=== PATIENT | female | born 2000 | race African-American/Black ===

== ENCOUNTER 2024-04-17 13:56 | Emergency (ER) | payer OTHER, SELFPAY ==
--- NOTE | ~2024-04-17 | XR_ITS ---
EXAMINATION: XR chest 2V Exam Date/Time: 04/17/2024 17:30 COUNTER SALES PERSON HISTORY: SOB CONGESTION SYNCOPE BODY ACHES HX ASTHMA Comparison: None. RESULT: Lines, tubes, and devices: None. Lungs and pleura: Clear. Cardiomediastinal silhouette: Normal. Other: No acute osseous or upper abdominal finding. IMPRESSION: No acute cardiopulmonary process. Reviewed, dictated and finalized at location K. TER SALES PERSON
[2024-04-17 13:56] VITALS: BP 140/84; PULSE 120; RESP 26; TEMP 37.2; O2SAT 98
--- OUTSIDE RECORDS SUMMARY | 2024-04-17 13:58 | XMS_ITS | CONTINUITY OF CARE DOCUMENT ---
Author Name jerry edwards Address Unknown Organization [facility] Address [address] [place] [address] Phone [phone] Care Team Providers Care Enzyme Chemist Name Role Phone Cedric Bernard MD Unavailable Cedric Bernard MD Unavailable [phone] INSURANCE PROVIDERS Payer name Policy type / Coverage type [place] [employer] [place] [employer] (2) Medicaid [id number]
[2024-04-17 14:12] VITALS: O2SAT 98
[2024-04-17 14:52] LABS: Influenza A QL RT-PCR Negative (Negative); Influenza B QL RT-PCR Negative (Negative); RSV RNA, RT-PCR Negative (Negative); SARS-CoV-2 RNA PCR Negative (Negative)
--- OUTSIDE RECORDS SUMMARY | 2024-04-17 15:09 | XMS_ITS | Clinical Summary ---
Author Organization [facility] Address [address] [place] [address] Care Team Providers Care Lye Boiler Name Role Phone Saray Thomas MD, Duran Ardon Primary Care Provide r Khanh Beckwith MD Unavailable [phone] Alis Lees MD Unavailable [phone] Allergies Active Allergy Reactions Criticality Noted Date Comments Doxycycline Nausea & Vomiting Low 03/25/2024 Medications fluticasone propionate (Flonase Allergy Relief) 50 mcg/actuation nasal spray Administer 1 spray into each nostril 2 (two) times a day 3 each 3 01/02/20 22 Active diphenhydrAMINE (BENADRYL) 25 mg capsuleIndication s:Moderate persistent asthma without complication Take 1 tablet/capsule (25 mg total) by mouth nightly 30 tablet/capsu le 2 01/19/20 22 Active albuterol 2.5 mg /3 mL (0.083 %) nebulizer solutionIndicatio ns:Acute Asthma Attack Take 3 mL (2.5 mg total) by nebulization 4 (four) times a day as needed for wheezing or shortness of breath 3 mL 3 05/21/19 23 Active ibuprofen (ADVIL,MOTRIN) 800 mg tabletIndications :Pain Take 1 tablet (800 mg total) by mouth every 8 (eight) hours as needed for pain 60 tablet 3 06/15/19 23 Active tiotropium bromide (Spiriva Respimat) 2.5 mcg/actuation inhaler Inhale 2 puffs daily 1 each 3 09/10/19 23 Active ipratropium-albut Mathieu (DUO-NEB) 0.5-2.5 mg/3 mL nebulizer solutionIndicatio ns:Chronic Obstructive Pulmonary Disease with Bronchospasms Take 3 mL by nebulization every 6 (six) hours 360 mL 3 07/31/19 24 Active azelastine (ASTELIN) 137 mcg (0.1 %) nasal spray Administer 1 spray into each nostril 2 (two) times a day Use in each nostril as directed 30 mL 3 07/31/19 24 Active budesonide-formot Mathieu (Symbicort) 160-4.5 mcg/actuation inhaler Inhale 2 puffs 2 (two) times a day Rinse mouth with water after use. Do not swallow. 1 each 11/12/19 24 Active montelukast (Singulair) 10 mg tablet Take 1 tablet (10 mg total) by mouth nightly 30 tablet 11/12/19 24 Active fexofenadine (VENECIA) 180 mg tabletIndications :Mild persistent asthma without complication Take 1 tablet (180 mg total) by mouth daily as needed (allergies) 90 tablet 4 01/02/20 24 025 Active albuterol HFA (ProAir HFA) 90 mcg/actuation inhaler Inhale 2 puffs every 6 (six) hours as needed for wheezing 1 each 3 02/27/20 24 Active Active Problems Problem Noted Date Diagnosed Date BMI 30.0-30.9,adult 07/31/2023 Mucopurulent chronic bronchitis 08/06/2022 Assessment & Plan (06/13/2023 11:09 AM CDT): Following pul Chronic stable Well controlled Continue current prescribed medications at current dose Preventative health care 06/14/2022 Assessment & Plan (06/13/2023 11:04 AM CDT): Reviewed labs, screenings and vaccines Assessment & Plan (06/14/2022 12:17 PM CDT): Reviewed labs, screenings and vaccines Xplru-9-ngghfkqncjkbmwfuyett (THC) dependence (C MS/HCC) 06/14/2022 Assessment & Plan (06/13/2023 11:04 AM CDT): Recommend edibles Assessment & Plan (06/14/2022 12:16 PM CDT): Discussed her smoking THC, strongly stressed she cannot do this to her lungs anymore She will try changing to gummies instead Elevated IgE level 01/01/2022 Moderate persistent asthma with status asthmatic us 11/22/2021 Assessment & Plan (07/26/2022 7:21 AM CDT): Has reduced her smoking of THC significantly This time of year her allergies do act up Because of the rash and her allergies I am going to prescribe steroids Assessment & Plan (06/14/2022 12:16 PM CDT): Stressed medical adherence Also stressed stopping smokng THC, it is clearly bad for her lungs and needs to stop. She is on multiple medication for asthma with no resolve Nicotine dependence 11/22/2021 Assessment & Plan (01/18/2022 2:24 PM CDT): Reports quitting smoking Non-seasonal allergic rhinitis due to pollen 10/2021 Gastroesophageal reflux disease without esophagi tis 05/07/2021 Encounters Date Type Department Care Team Description 04/16/2024 2:00 PM NEUROPATHOLOGIST - 04/16/2024 11:59 PM NEUROPATHOLOGIST Hospital Encounter [facility] Respiratory Therapy [address] [place] [address] Mucopurulent chronic bronchitis (HCC); Moderate persistent asthma with status asthmaticus; Non-seasonal allergic rhinitis due to pollen; Elevated IgE level; BMI 30.0-30.9,adult Discharge Disposition: Discharge to home or self care 03/05/2024 Telephone [facility] Pulmonology [address] [place] [address] Karol Dinh MD 02/27/2024 10:41 AM NEUROPATHOLOGIST - 02/27/2024 11:59 PM NEUROPATHOLOGIST Hospital Encounter [facility] [place] [address] Mucopurulent chronic bronchitis (HCC); Moderate persistent asthma with status asthmaticus; Non-seasonal allergic rhinitis due to pollen; Elevated IgE level; BMI 30.0-30.9,adult Discharge Disposition: Discharge to home or self care 02/27/2024 9:45 AM NEUROPATHOLOGIST Office Visit [facility] Pulmonology [address] [place] [address] [place] [phone] Karol Dinh MD Mucopurulent chronic bronchitis (HCC) (Primary Dx); Moderate persistent asthma with status asthmaticus; Non-seasonal allergic rhinitis due to pollen; Elevated IgE level; BMI 30.0-30.9,adult 02/27/2024 Documentation [facility] Medical [facility] Pulmonology [address] [place] [phone] Angeline Ham, MISSY 01/23/[address] [address] Nasra Mills, MISSY 01/22/2024 6:18 PM NEUROPATHOLOGIST - 01/22/2024 7:38 PM NEUROPATHOLOGIST Emergency [address] [address] Discharge Disposition: Left without being seen from Last 3 Months Immunizations Name Administration Dates Next Due DTaP 08/23/2003, 1,1999,08/23,1999 HPV, Quadrivalent 11/28/2010 HPV9 07/20/2015 Hep A, Ped Unspecified 08/06/2001 Hep A, Pediatric 09/24/2004 Hep B / HiB 1999,1999 Hep B, Adolescent or Pediatric 1999,1998 HiB 08/06/2001,10/28/2000 IPV 08/23/2003, 0,1999,05/22 Influenza, Quadrivalent, Spl it, Preservative Free, Intramuscular 06/13/2022 Influenza, Split 12/28/2009 Influenza, Trivalent, Preser vative Free, Intramuscular 11/28/2010 Influenza, Unspecified 01/15/2023,2021(Deferred: Patient Refused),05/07/2021(Deferred: Patient Refused),05/04/2009 MMR 08/23/2003,10/28/2000 Meningococcal MCV4P (Menactra) 07/20/2015,2010 Tdap 11/28/2010 Varicella 05/04/2009,10/28/2000 Family History Relation Name Status Comments Father Alive Mother Alive Social History Tobacco Use Types Packs/Day Years Used Date Smoking Tobacco: Never Smokeless Tobacco: Never Tobacco Cessation:Counseling Given: Not Answered AUDIT-C Answer Date Recorded Q1: How often do you have a drink containing alc ohol? 2-4 times a month 06/13/2023 Q2: How many drinks containi ng alcohol do you have on a typical day when you are drinking? 1 or 2 06/13/2023 Q3: How often do you have si x or more drinks on one occasion? Never 06/13/2023 PHQ-2 Answer Date Recorded PHQ-2 Total Score (If total score is 3 or more points, staff should administer the PHQ-9) 0 06/13/2023 Hunger Vital Sign Answer Date Recorded Within the past 12 months, y ou worried that your food would run out before you got the money to buy more. Never true 11/15/19 23 Within the past 12 months, t he food you bought just didn't last and you didn't have money to get more. Never true 11/14/2022 Personal Safety Answer Date Recorded Have you ever been in or are you currently in a harmful physical or emotional relationship or is someone making you feel afraid or unsafe? Denies 11/11/2023 Comments No Sex and Gender Information Value Date Recorded Sex Assigned at Not on file Legal Sex Female 7:01 PM NEUROPATHOLOGIST Gender Identity Female 12/20/2021 10:41 AM CDT Sexual Orientation Not on file Obstetrics History Last Filed Vital Signs Vital Sign Reading Time Taken Comments Blood Pressure 110/62 02/27/2024 9:50 AM NEUROPATHOLOGIST Pulse 100 04/16/2024 2:30 PM NEUROPATHOLOGIST Temperature 37 ??C (98.6 ??F) 02/27/2024 9:50 AM NEUROPATHOLOGIST Respiratory Rate 18 04/16/2024 2:30 PM NEUROPATHOLOGIST Oxygen Saturation 99% 04/16/2024 2:30 PM NEUROPATHOLOGIST Inhaled Oxygen Concentration - - Weight 75.8 kg (167 lb 3.2 oz) 02/27/2024 9:50 A M NEUROPATHOLOGIST Height 157.5 cm (5' 2 ) 02/27/2024 9:50 AM NEUROPATHOLOGIST Body Mass Index 30.58 02/27/2024 9:50 AM NEUROPATHOLOGIST Plan of Treatment Health Maintenance Due Date Last Done Comments Hepatitis C Screening 1999 Pneumococcal vaccine <65 (1 of 2 - PCV) 2005 DTaP/Tdap/Td Vaccine (7 - Td or Tdap) 11/28/2020 11/28/2010, 08/23/2003, 10/28/2000, Additional history exists Cervical Cancer Screening 02/23/2022 02/23/2021 Covid-19 Vaccine (3 - 2023-2 5 season) 2023 01/06/2021, 12/13/2020 Influenza Vaccine (#1) 2023 , 06/13/2022, 11/28/2010, Additional history exists Depression Screening 06/12/2024 06/13/2023, 06/13/2023, 07/26/2022, Additional history exists Regular Well Visit/Exam 18-64 06/12/2024, 06/14/2022, 05/07/2021 Varicella Vaccines Completed 05/04/2009, 10/28/2000 HPV Vaccines Completed 07/20/2015, 11/28/2010 Procedures Procedure Name Priority Date/Time Associated Diagnosis Comments PULMONARY FUNCTION TEST (PFT) Routine 04/16/2024 2:53 PM NEUROPATHOLOGIST Mucopurulent chronic bronchitis (HCC) Moderate persistent asthma with status asthmaticus Non-seasonal allergic rhinitis due to pollen Elevated IgE level BMI 30.0-30.9,adult XR CHEST PA LATERAL 2 VIEWS Schedule Routine, Read Routine (OP Routine) 02/27/2024 11:01 AM NEUROPATHOLOGIST Mucopurulent chronic bronchitis (HCC) Moderate persistent asthma with status asthmaticus Non-seasonal allergic rhinitis due to pollen Elevated IgE level BMI 30.0-30.9,adult HM PAP SMEAR WITH HPV Routine 02/23/2021 from Last 3 Months or Most Recently Relevant to Health Maintenance Results * XR Chest Pa Lateral 2 Views (02/27/2024 11:01 AM NEUROPATHOLOGIST) Anatomical Region Laterality Modality Body, Chest N/A Computed Radiogr aphy 03/05/2024 10:5 9 AM NEUROPATHOLOGIST Narrative 03/05/2024 11:02 AM NEUROPATHOLOGIST EXAM DESCRIPTION: XR CHEST PA LATERAL 2 VIEWS REASON FOR STUDY: Cough and congestion x 2 yrs, Hx smoker ?? TECHNIQUE: Frontal and lateral radiographic view(s) of the chest. COMPARISON: 11/11/2023. FINDINGS: LUNGS: ??Bilateral perihilar interstitial thickening appears slightly increased from prior imaging. ??There is no focal consolidation, pleural effusion or pneumothorax. ?? HEART/MEDIASTINUM: ??Cardiac silhouette normal in size. Mediastinal and hilar contours appear normal. LINES/TUBES: ??None. BONES: ??No acute osseous abnormality. IMPRESSION: Bilateral perihilar interstitial thickening slightly increased from prior imaging. ??Findings may be related to a viral infection. ??Continued follow-up recommended. THIS IS AN ELECTRONICALLY VERIFIED FINAL REPORT 03/05/2024 11:02 AM - Electronically signed by ??Petros Harris M.D. D: ??03/05/2024 11:02 AM T: Report ID: [id number] Reading Location: ??[id number] Procedure Note Petros Harris Jr., MD - 03/05/2024 EXAM DESCRIPTION: XR CHEST PA LATERAL 2 VIEWS REASON FOR STUDY: Cough and congestion x 2 yrs, Hx smoker TECHNIQUE: Frontal and lateral radiographic view(s) of the chest. COMPARISON: 11/11/2023. FINDINGS: LUNGS: Bilateral perihilar interstitial thickening appearsslightly increased from prior imaging. There is no focal consolidation, pleural effusion or pneumothorax. HEART/MEDIASTINUM: Cardiac silhouette normal in size. Mediastinal andhilar contours appear normal. LINES/TUBES: None. BONES: No acute osseous abnormality. IMPRESSION: Bilateral perihilar interstitial thickening slightly increased from prior imaging. Findings may be related to a viral infection.Continued follow-up recommended. THIS IS AN ELECTRONICALLY VERIFIED FINAL REPORT 03/05/2024 11:02 AM - Electronically signed by Petros Harris M.D. T: Report ID: [id number] Reading Location: [place] [address] Karol Dinh MD IMG XR PROCEDURES Final Res ult * HM PAP SMEAR WITH HPV (02/23/2021) Scribed Pap Smear w/HPV Normal Historical Provider HEALTH MAINTENANCE Final Result from Last 3 Months or Most Recently Relevant to Health Maintenance Insurance [facility] Care Teams Lye Boiler Relationship Specialty Start Date End Date Duran So Jr., MD [address] [place] [id number] PCP - General Internal Medicine 05/07/21 Khanh Beckwith MD [address] [place] [address] [place] [address] Dermatology 08/13/22 Alis Lees MD [facility] [address] [place] [address] Resident Dermatology 11/14/22
--- OUTSIDE RECORDS SUMMARY | 2024-04-17 15:09 | XMS_ITS | Encounter Summary ---
Author Organization [facility] Healthcare Address [address] [place] [address] Care Team Providers Care Pathological Technician Name Role Phone Saray Thomas MD, Duran Ardon Primary Care Provide r Khanh Beckwith MD Unavailable [phone] Alis Lees MD Unavailable [phone] Reason for Referral * Procedure (Routine) - Closed Specialty Diagnoses / Procedures Referred By Contdae fair Referred To Contact Diagnoses Mucopurulent chronic bronchitis (HCC) Moderate persistent asthma with status asthmaticus Non-seasonal allergic rhinitis due to pollen Elevated IgE level BMI 30.0-30.9,adult Procedures Pulmonary Function Test -[facility]; Full PFT in PFT Lab w/Stress Ox/6 Min Walk Test Karol Dinh MD [address] [facility] [address] [address] Phone: tel: fax: Referral ID Status Reason Start Date Expiration Date Visits Re quested Visits Authorized [id number] Closed 02/27/2024 03/28/2025 1 1 P DRIVER Reason for Visit * Procedure (Routine) - Closed Specialty Diagnoses / Procedures Referred By Contdae fair Referred To Contact Diagnoses Mucopurulent chronic bronchitis (HCC) Moderate persistent asthma with status asthmaticus Non-seasonal allergic rhinitis due to pollen Elevated IgE level BMI 30.0-30.9,adult Procedures Pulmonary Function Test -[facility]; Full PFT in PFT Lab w/Stress Ox/6 Min Walk Test Karol Dinh MD [address] [facility] [address] [place] [address] Phone: tel: fax: Referral ID Status Reason Start Date Expiration Date Visits Re quested Visits Authorized [id number] Closed 02/27/2024 03/28/2025 1 1 Encounter Details Date Type Department Care Team (Latest Contact Info) Description 04/16/2024 2:00 PM SCOOP DRIVER - 04/16/2024 11:59 PM SCOOP DRIVER Hospital Encounter [facility] Respiratory Therapy [address] [place] [phone] Mucopurulent chronic bronchitis (HCC); Moderate persistent asthma with status asthmaticus; Non-seasonal allergic rhinitis due to pollen; Elevated IgE level; BMI 30.0-30.9,adult Discharge Disposition: Discharge to home or self care Social History Tobacco Use Types Packs/Day Years Used Date Smoking Tobacco: Never Smokeless Tobacco: Never AUDIT-C Answer Date Recorded Q1: How often [...] on file Legal Sex Female 7:01 PM SCOOP DRIVER Gender Identity Female 12/20/2021 10:41 AM CDT Sexual Orientation Not on file documented as of this encounter Last Filed Vital Signs Vital Sign Reading Time Taken Comments Blood Pressure - - Pulse 100 04/16/2024 2:30 PM SCOOP DRIVER Temperature - - Respiratory Rate 18 04/16/2024 2:30 PM SCOOP DRIVER Oxygen Saturation 99% 04/16/2024 2:30 PM SCOOP DRIVER Inhaled Oxygen Concentration - - Weight - - Height - - Body Mass Index - - documented in this encounter Medications at Time of Discharge diphenhydrAMINE (BENADRYL) 25 mg capsuleIndications :Moderate persistent asthma without complication Take 1 tablet/capsul e (25 mg total) by mouth nightly 30 tablet/capsule 2 01/18/2022 fexofenadine (VENECIA) 180 mg tabletIndications: Mild persistent asthma without complication Take 1 tablet (180 mg total) by mouth daily as needed (allergies) 90 tablet 4 01/02/2024 ibuprofen (ADVIL,MOTRIN) 800 mg tabletIndications: Pain Take 1 tablet (800 mg total) by mouth every 8 (eight) hours as needed for pain 60 tablet 3 06/14/2022 documented as of this encounter Discharge Disposition Disposition Code Departure Means Destination Discharge to home or self care documented in this encounter Progress Notes * Zoe Garrido, SHANK STITCHER - 04/16/2024 2:52 PM CST Exercise Oximetry Results Resting Information Resting HR.: (P) 100 bpm Resting SPO2: (P) 99 % Oxygen Setting: (P) ROOM AIR Ambulation Trials Activity 1: Ambulated (feet): (P) 1400 feet Oxygen Setting #1: (P) ROOM AIR SPO2 (%) #1: (P) 98 % Post Ambulation Assessment HR Post Assessment: (P) 110 bpm RR Post Assessment: (P) 18 breaths/m Post Assessment Recommendation: (P) PT DOES NOT QUALIFY FOR HOME OXYGEN $ Home O2 Assessment: (P) Yes Patient is a fall risk (Y/N): N Assistive device: N Critical Results (enter NA in each field below if no critical results) Critical results reported to: NA Method of notification: NA Time of notification: NA DX:ASTHMA Zoe Garrido RRT P DRIVER documented in this encounter Plan of Treatment Pending Results Name Type Priority Associated Diagnoses Date /Time Pulmonary Function Test - PFT Routine Mucopurulent chronic bronchitis (HCC) Moderate persistent asthma with status asthmaticus Non-seasonal allergic rhinitis due to pollen Elevated IgE level BMI 30.0-30.9,adult 04/16/2024 2:53 PM SCOOP DRIVER documented as of this encounter Procedures Procedure Name Priority Date/Time Associated Diagnosis Comments PULMONARY FUNCTION TEST (PFT) Routine 04/16/2024 2:53 PM SCOOP DRIVER Mucopurulent chronic bronchitis (HCC) Moderate persistent asthma with status asthmaticus Non-seasonal allergic rhinitis due to pollen Elevated IgE level BMI 30.0-30.9,adult documented in this encounter Visit Diagnoses Diagnosis Mucopurulent chronic bronchitis (HCC) Mucopurulent chronic bronchitis Moderate persistent asthma with status asthmaticus Unspecified asthma, with status asthmaticus Non-seasonal allergic rhinitis due to pollen Elevated IgE level Other and unspecified nonspecific immunological findings BMI 30.0-30.9,adult documented in this encounter Administered Medications Inactive Administered Medications - up to 3 most recent administrations Medication Order MAR Action Action Date Dose Rate Site albuterol HFA (PROVENTIL HFA,VENTOLIN HFA,PROAIR HFA) 90 mcg/actuation inhaler 2 puff 2 puff, inhalation, Once (foreign correspondent), On Fri04/16/24 at 1530, For 1 dose Given 04/16/2024 2:20 PM SCOOP DRIVER 2 puffs documented in this encounter Orders Medications Ordered That Riccardo ht Not Have Been Administered Count Last Ordered Date First Ordered Date albuterol HFA (PROVENTIL HFA ,VENTOLIN HFA,PROAIR HFA) 90 mcg/actuation inhaler 2 puff 1 04/16/2024 documented in this encounter Care Teams Pathological Technician Relationship Specialty Start Date End Date Duran So Jr., MD [address] [place] [id number] PCP - General Internal Medicine 05/07/21 Khanh Beckwith MD [address] [facility] [place] [address] Dermatology 08/13/22 Alis Lees MD [address] [place] [address] Resident Dermatology 11/14/22 documented as of this encounter
--- OUTSIDE RECORDS SUMMARY | 2024-04-17 15:09 | XMS_ITS | Referral Summary ---
Author Organization [facility] Address [address] [place] [address] Care Team Providers Care Mechanical Maintenance Instructor Name Role Phone Saray Thomas MD, Duran Ardon Primary Care Provide r Khanh Beckwith MD Unavailable [phone] Alis Lees MD Unavailable Encounters Date Type Department Care Team Description 04/16/2024 2:00 PM DISH TECHNICIAN - 04/16/2024 11:59 PM DISH TECHNICIAN Hospital Encounter [facility] Res[facility] [place] [address] Mucopurulent chronic bronchitis (HCC); Moderate persistent asthma with status asthmaticus; Non-seasonal allergic rhinitis due to pollen; Elevated IgE level; BMI 30.0-30.9,adult Discharge Disposition: Discharge to home or self care 03/05/2024 Telephone [facility] Pulmonology [address] [place] [id number] Karol Dinh MD 02/27/2024 Documentation [facility] Pulmonology [address] [place] [id number] Angeline Ham RN 02/27/2024 10:41 AM DISH TECHNICIAN - 02/27/2024 11:59 PM DISH TECHNICIAN Hospital Encounter [facility] [address] [place] [address] Mucopurulent chronic bronchitis (HCC); Moderate persistent asthma with status asthmaticus; Non-seasonal allergic rhinitis due to pollen; Elevated IgE level; BMI 30.0-30.9,adult Discharge Disposition: Discharge to home or self care 02/27/2024 9:45 AM DISH TECHNICIAN Office Visit [facility] Pulmonology [address] [phone] Karol Dinh MD Mucopurulent chronic bronchitis (HCC) (Primary Dx); Moderate persistent asthma with status asthmaticus; Non-seasonal allergic rhinitis due to pollen; Elevated IgE level; BMI 30.0-30.9,adult 01/23/[address] [address] Nasra Mills RN 01/22/2024 6:18 PM DISH TECHNICIAN - 01/22/2024 7:38 PM DISH TECHNICIAN Emergency [address] [address] Discharge Disposition: Left without being seen from Last 3 Months Allergies Active Allergy Reactions Criticality Noted Date [...] PM CDT): Reviewed labs, screenings and vaccines Vggvw-0-czhqybiqobsgxszblsya (THC) dependence (C MS/HCC) 06/14/2022 Assessment & [...] Gastroesophageal reflux disease without esophagi tis 05/07/2021 Immunizations Name Administration Dates Next Due DTaP [...] MCV4P (Menactra) 07/20/2015,2010 Tdap 11/28/2010 Varicella 05/04/2009,10/28/2000 Social History Tobacco Use Types Packs/Day Years [...] on file Legal Sex Female 7:01 PM DISH TECHNICIAN Gender Identity Female 12/20/2021 10:41 AM CDT Sexual Orientation Not on file Last Filed Vital Signs Vital Sign Reading Time Taken Comments Blood Pressure 110/62 02/27/2024 9:50 AM DISH TECHNICIAN Pulse 100 04/16/2024 2:30 PM DISH TECHNICIAN Temperature 37 ??C (98.6 ??F) 02/27/2024 9:50 AM DISH TECHNICIAN Respiratory Rate 18 04/16/2024 2:30 PM DISH TECHNICIAN Oxygen Saturation 99% 04/16/2024 2:30 PM DISH TECHNICIAN Inhaled Oxygen Concentration - - Weight 75.8 kg (167 lb 3.2 oz) 02/27/2024 9:50 A M DISH TECHNICIAN Height 157.5 cm (5' 2 ) 02/27/2024 9:50 AM DISH TECHNICIAN Body Mass Index 30.58 02/27/2024 9:50 AM DISH TECHNICIAN Plan of Treatment Not on file Procedures Procedure Name Priority Date/Time Associated Diagnosis Comments PULMONARY FUNCTION TEST (PFT) Routine 04/16/2024 2:53 PM DISH TECHNICIAN Mucopurulent chronic bronchitis (HCC) Moderate persistent asthma with status asthmaticus Non-seasonal allergic rhinitis due to pollen Elevated IgE level BMI 30.0-30.9,adult XR CHEST PA LATERAL 2 VIEWS Schedule Routine, Read Routine (OP Routine) 02/27/2024 11:01 AM DISH TECHNICIAN Mucopurulent chronic bronchitis (HCC) Moderate persistent asthma with status asthmaticus Non-seasonal allergic rhinitis due to pollen Elevated IgE level BMI 30.0-30.9,adult PAP SMEAR WITH HPV Routine 02/23/2021 from Last 3 Months or Most Recently Relevant to Health Maintenance Results * XR Chest Pa Lateral 2 Views (02/27/2024 11:01 AM DISH TECHNICIAN) Anatomical Region Laterality Modality Body, Chest N/A Computed Radiogr aphy 03/05/2024 10:5 9 AM DISH TECHNICIAN Narrative 03/05/2024 11:02 AM DISH TECHNICIAN EXAM DESCRIPTION: XR CHEST PA LATERAL 2 [...] D: ??03/05/2024 11:02 AM T: Report ID: [id number] Reading Location: ??[id number] Procedure Note Petros Harris Jr., MD - [...] by Petros Harris M.D. T: Report ID: [id number] Reading Location: [id number] Karol Dinh MD IMG XR PROCEDURES Final Res ult * HM PAP SMEAR WITH HPV (02/23/2021) Scribed Pap Smear w/HPV Normal Historical Provider HEALTH MAINTENANCE Final Result from Last 3 Months or Most Recently Relevant to Health Maintenance Insurance [facility] Care Teams Mechanical Maintenance Instructor Relationship Specialty Start Date End Date Duran So Jr., MD [address] [place] [id number] PCP - General Internal Medicine 05/07/21 Khanh Beckwith MD [address] [place] [address] [place] [address] Dermatology 08/13/22 [facility]is Le[facility] [address] [place] [address] Resident Dermatology 11/14/22
--- OUTSIDE RECORDS SUMMARY | 2024-04-17 15:09 | XMS_ITS | CONTINUITY OF CARE DOCUMENT ---
Author Name jerry edwards Address Unknown Organization [facility] Address [address] [place] [address] Phone [phone] Care Team Providers Care Sr. Operations Manager Name Role Phone Cedric Bernard MD Unavailable Cedric Bernard MD Unavailable INSURANCE PROVIDERS Payer name Policy type / Coverage type [place] [employer] [place] [employer] (2) Medicaid [id number]
[2024-04-17] MEDS: ALBUTEROL SULFATE NEB 2.5 MG/3 ML INH 5 MG INHALATION (16:30)
[2024-04-17 16:32] VITALS: PULSE 110; RESP 24
--- NOTE | 2024-04-17 16:34 | ED.GENADULT ---
HPI - General Adult General Chief complaint: Asthma Stated complaint: asthma Time Seen by Provider: 04/17/24 14:59 History of Present Illness HPI narrative: 24-year-old female history of asthma presented emergency department for evaluation of worsening shortness of breath. Patient states he has had worsening shortness breath since yesterday. Patient has been attempting to use her albuterol without significant improvement. Patient states her last admission for asthma was in January at [facility]. 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 Patient states that she has never been intubated. Patient does have nasal congestion and shortness of breath. Related Data Allergies Allergy/AdvReac Type Severity Reaction Status Date / Time No Known Allergies Allergy Verified 04/17/24 13:56 Review of Systems Review of Systems: All systems reviewed & are unremarkable except as noted in HPI and below Exam Narrative: APPEARANCE: Ill-appearing HEAD: normocephalic, atraumatic. EYES: PERRLA/EOMI, conjunctivae clear. NOSE: Normal no drainage EARS:TMS clear with good light reflex. THROAT: Pharynx clear, no exudate. NECK: Supple. No adenopathy, no masses. RESPIRATORY: Auditory wheeze CARDIOVASCULAR: Regular rate and rhythm without murmurs rubs or gallops. ABDOMINAL: Soft, nontender, nondistended, normal bowel sounds MUSCULOSKELETAL: Moves all extremities. Strength/ROM intact, No edema, No calf tenderness. NEURO: Alert. Cranial nerves II through XII intact. Good gait. Good coordination SKIN: Warm, dry. Normal Color Course Vital Signs Vital signs: Vital Signs Temperature 98.9 F 04/17/24 13:56 Pulse Rate 120 H 04/17/24 13:56 Respiratory Rate 26 H 04/17/24 13:56 Blood Pressure 140/84 04/17/24 13:56 Pulse Oximetry 98 04/17/24 13:56 Oxygen Delivery Room Air 04/17/24 13:56 Temperature 98.9 F 04/17/24 13:56 Pulse Rate 120 H 04/17/24 18:44 Respiratory Rate 20 04/17/24 18:44 Blood Pressure 117/67 04/17/24 18:44 Pulse Oximetry 97 04/17/24 18:44 Oxygen Delivery Room Air 04/17/24 14:12 Medical Decision Making [facility] Narrative Medical decision making narrative: 24-year-old female presented to the emergency department for evaluation for asthma exacerbation. On re-evaluation patient's wheeze has significantly improved after the breathing treatment. Patient does states she still feels poorly but states she does feel improved regarding her breathing. Patient was still tachycardic after the breathing treatment this may be secondary to the albuterol. Patient was offered additional IV fluids but patient prefers to be discharged home. Patient chest x-ray showed no acute cardiopulmonary abnormality. Patient was negative for influenza RSV and for COVID. Due to the duration of the patient's symptoms patient will be treated with antibiotics. Patient states he does have albuterol nebulizer and inhaler with spacer at home. Patient was encouraged to return to the emergency department if she had any worsening symptoms. Differential Diagnosis Differential Diagnosis: COVID, RSV, influenza, pneumonia, asthma exacerbation Vital Signs Vital Signs: Vital Signs Temperature 98.9 F 04/17/24 13:56 Pulse Rate 120 H 04/17/24 13:56 Respiratory Rate 26 H 04/17/24 13:56 Blood Pressure 140/84 04/17/24 13:56 Pulse Oximetry 98 04/17/24 13:56 Oxygen Delivery Room Air 04/17/24 13:56 Temperature 98.9 F 04/17/24 13:56 Pulse Rate 120 H 04/17/24 18:44 Respiratory Rate 20 04/17/24 18:44 Blood Pressure 117/67 04/17/24 18:44 Pulse Oximetry 97 04/17/24 18:44 Oxygen Delivery Room Air 04/17/24 14:12 Lab Data Lab results reviewed: Yes I reviewed the patient's lab results. 04/17/24 16:39 04/17/24 16:39 Labs: Lab Results 04/17/24 04/17/24 Range/Units 14:12 16:39 WBC 12.6 H (4.5-10.0) K/mm3 RBC 4.19 L (4.2-5.4) M/mm3 Hgb 12.4 (12.0-15.0) g/dL Hct 36.5 L (37.0-47.0) % MCV 87.1 (80-100) fl MCH 29.6 (26-34) pg MCHC 34.0 (32-36) g/dl RDW 12.9 (11.5-14.5) % Plt Count 250 (150-375) k/mm3 MPV 10.2 (7.4-10.4) fl Immature Gran % (Auto) 0.3 (0-0.5) % Neut % (Auto) 71.2 (45.5-73.1) % Lymph % (Auto) 18.7 (18.3-44.2) % [place] % (Auto) 7.9 (2.6-8.5) % Eos % (Auto) 1.7 (0-4.4) % Baso % (Auto) 0.2 (0.2-1.2) % Lymph # (Auto) 2.36 (0.9-3.2) K/mm3 [place] # (Auto) 1.0 H (0.1-0.6) K/mm3 Eos # (Auto) 0.2 (0-0.3) K/mm3 Baso # (Auto) 0.0 (0.0-0.1) K/mm3 Abs Immat Gran (auto) 0.04 H (0.00-0.031) K/mm3 Absolute Neuts (auto) 9.0 H (1.3-6.7) K/mm3 Absolute Nucleated RBC 0.000 (0.0-0.012) K/mm3 Nucleated RBC % 0.0 (0.0-0.2) % Sodium 135 L (137-145) mmol/L Potassium 3.6 (3.4-5.0) mmol/L Chloride 102 (98-107) mmol/L Carbon Dioxide 25 (22-30) mmol/L Anion Gap 8 (4-12) mmol/L BUN 7 (7-17) mg/dL Creatinine 0.69 L (0.7-1.0) mg/dL Estim Creat Clear Calc 102 ml/min Estimated GFR > 60 (59 - ) Glucose 94 (65-110) mg/dL Calcium 9.0 (8.4-10.2) mg/dL Total Bilirubin 0.7 (0.2-1.3) mg/dL AST 22 (14-36) U/L ALT 15 (6-35) U/L Alkaline Phosphatase 84 (38-126) U/L Total Protein 8.0 (6.3-8.2) g/dL Albumin 4.0 (3.5-5.1) g/dL Influenza A (RT-PCR) Negative (Negative) Influenza B (RT-PCR) Negative (Negative) RSV (RT-PCR) Negative (Negative) SARS-CoV-2 RNA (RT-PCR) Negative (Negative) Imaging Data Radiologist's impression: Impressions Chest X-Ray 04/17/24 17:48 IMPRESSION: No acute cardiopulmonary process. Discharge Plan Discharge Clinical Impression: Asthma with acute exacerbation, Pneumonia Patient Disposition: Home, Self-Care Condition: Stable Instructions: Antibiotic Form, Asthma (DC), Pneumonia (ED) Additional Instructions: Continue to use your home albuterol as directed. I do recommend using you nebulized albuterol or make sure you use your spacer with your inhaler. Antibiotics as directed until completed. Have close follow-up with pulmonology. If you have any worsening symptoms and please call or return to the emergency department. Patient Language: Kyrgyz Prescriptions: New azithromycin 250 mg tablet See Rx Instructions .ROUTE .COMPLEX Qty: 6 0RF Rx Instructions: For 250 mg dose pack: take 500 mg today (day 1), then 250 mg for 4 days (days 2-5) amoxicillin-pot clavulanate 875-125 mg tablet 1 tablet PO Q12H 7 Days Qty: 14 0RF Follow-up/Referrals: PHYSICIAN NOT ON STAFF,NONSTAFF [Primary Care Provider] -
[2024-04-17] MEDS: SODIUM CHLORIDE 0.9% IV 1,000 ML 999 ML IV CONT (16:42)
[2024-04-17 16:44] LABS: Basophils Percent Auto 0.2 % (0.2-1.2); Eosinophils Absolute Auto 0.2 K/mm3 (0-0.3); Eosinophils Percent Auto 1.7 % (0-4.4); Hematocrit 36.5 % (37.0-47.0); Hemoglobin 12.4 g/dL (12.0-15.0); Immature Granulocyte Absolute 0.04 K/mm3 (0.00-0.031); Immature Granulocyte Percent A 0.3 % (0-0.5); Lymphocytes Absolute Auto 2.36 K/mm3 (0.9-3.2); Lymphocytes Percent Auto 18.7 % (18.3-44.2); Mean Corpuscular Hemoglobin 29.6 pg (26-34); Mean Corpuscular Volume 87.1 fl (80-100); Mean Platelet Volume 10.2 fl (7.4-10.4); Monocytes Percent Auto 7.9 % (2.6-8.5); Neutrophils Percent Auto 71.2 % (45.5-73.1); Platelet Count Result 250 k/mm3 (150-375); Red Blood Count 4.19 M/mm3 (4.2-5.4); Red Cell Distribution Width 12.9 % (11.5-14.5); White Blood Count 12.6 K/mm3 (4.5-10.0)
[2024-04-17] MEDS: MAGNESIUM SULF 1 GM/D5W 100 ML 1 GM/100 ML BAG IVPB (16:44)
[2024-04-17 16:45] VITALS: BP 138/78; PULSE 127; RESP 18; O2SAT 100
[2024-04-17 16:47] VITALS: PULSE 126; RESP 18
[2024-04-17 17:04] LABS: Alanine Aminotransferase 15 U/L (6-35); Alkaline Phosphatase 84 U/L (38-126); Anion Gap 8 mmol/L (4-12); Aspartate Amino Transferase 22 U/L (14-36); Bilirubin,Total 0.7 mg/dL (0.2-1.3); Blood Urea Nitrogen 7 mg/dL (7-17); Carbon Dioxide 25 mmol/L (22-30); Chloride 102 mmol/L (98-107); Estimated CRCL calculation 102 ml/min; Estimated Glomerular Filt Rate > 60; Glucose 94 mg/dL (65-110); Potassium 3.6 mmol/L (3.4-5.0); Sodium 135 mmol/L (137-145)
[2024-04-17] MEDS: AZITHROMYCIN 250 MG TABLET 500 MG PO (18:39)
[2024-04-17] MEDS: AMOXICILLIN/CLAVULANATE K 875-125 MG TAB 1 TABLET PO (18:39)
[2024-04-17 18:44] VITALS: BP 117/67; PULSE 120; RESP 20; O2SAT 97
== END 2024-04-17 18:45 | disposition home or self-care (01) ==
PROVIDERS: Emergency Provider Emergency Medicine
DX: J45.901 Unspecified asthma with (acute) exacerbation (principal); J18.9 Pneumonia, unspecified organism; Z20.822 Contact with and (suspected) exposure to COVID-19
CPT/HCPCS: 36415; 71046; 80053; 85025; 87637; 94640; 96365; 99284; A9270; J3475; J7030